=== PATIENT | male | born 1950 | race Caucasian/White ===

== ENCOUNTER 2016-07-23 14:05 | Emergency (ER) | payer MEDICARE, OTHER ==
[~2016-07-23] VITALS: Ht 180.3 cm; Wt 65.5 kg
[~2016-07-23 14:05] MED LIST: BACT800T5 PO; CEPH500C3 PO
[2016-07-23 14:20] VITALS: BP 125/70; PULSE 97; RESP 16; TEMP 97.9; O2SAT 97
[2016-07-23] MEDS ORDERED: VENTAER INH (15:53)
[2016-07-23] MEDS ORDERED: ADVA115A INH (15:53)
--- NOTE | 2016-07-23 16:02 | PD ---
HPI . Shortness of breath Chief Complaint: Respiratory Symptoms Time Seen by Provider: 15:42 Travel History International Travel<30 days: No Contact w/Intl Traveler<30days: No Traveled to known affect area: No History of Present Illness HPI Patient presents to us with chronic shortness of breath. Patient states that he has just recently changed Medicare and Medicaid. He states that his friends dropped him off here for evaluation. He reports no new or different symptoms. He reports chronic dyspnea and dyspnea on exertion. He reports that he has been treated in the past with home nebulizer therapy with good results. Not currently having any medications. His dyspnea is exacerbated by walking. He reports occasional hemoptysis. Patient also states that he is depressed. He has lost both his parents in the last 7 months. He denies any homicidal or suicidal ideation. Patient further reports chain-smoking and chronic alcohol abuse. None of his symptoms are new or different today. He just turned 66 a few days ago and now has Medicare. That is the only reason why he presented to the emergency department today. PFSH Past Medical History Arthritis: No Asthma: No Autoimmune Disease: No Blood Disorders: Yes (blood clot in back of neck when he was 10) Anxiety: Yes Depression: Yes Heart Rhythm Problems: No Cancer: No Cardiovascular Problems: Yes High Cholesterol: No Chest Pain: Yes Congestive Heart Failure: No COPD: No Endocrine: No Genitourinary: No Hypertension: Yes Immune Disorder: No Musculoskeletal: Yes Neurologic: No Psychiatric: No Reproductive: No Respiratory: Yes Sleep Apnea: No Past Surgical History Other Surgery: No Social History Alcohol Use: Yes (12 PK A DAY) Tobacco Use: Yes (3-5 PKS A DAY) Substance Use: Yes (occasional marijuana) Allergies-Medications (Allergen,Severity, Reaction): Coded Allergies: *MDRO Multi-Drug Resistant Organism (Verified Adverse Reaction, Unknown, ) 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) Reported Meds & Prescriptions Reported Meds & Active Scripts Active Advair Hfa 12 GM Inh (Fluticasone-Salmeterol 12 GM Inh) 115-21 Mcg/Act Aer 2 Puff INH BID Ventolin Hfa 18 GM Inh (Albuterol Sulfate) 90 Mcg/Act Aer 2 Puff INH Q4-6H PRN Keflex (Cephalexin Monohydrate) 500 Mg Cap 500 Mg PO Q6HR 10 Days Bactrim DS (Sulfamethoxazole-Trimethoprim DS) 1 Tab Tab 1 Tab PO Q12HR 10 Days Review of Systems Except as stated in HPI: all other systems reviewed are Neg General / Constitutional: No: Fever, Chills Respiratory: Positive: Shortness of Breath, Hemoptysis Psychiatric: Positive: Depression, Substance Abuse, No: Suicidal Ideations, Disorder of Thought, Homicidal Ideation Physical Exam Narrative Vital Signs Date Time Temp Pulse Resp B/P Pulse Ox O2 Delivery O2 Flow Rate FiO2 07/23/16 14:20 97.9 97 16 125/70 97 GENERAL: This man reeks of alcohol. He is in no acute distress. SKIN: Warm and dry. HEAD: Atraumatic. Normocephalic. EYES: Pupils equal and round. Sclerae are anicteric. ENT: No nasal bleeding or discharge. Mucous membranes pink and moist. NECK: Trachea midline. Neck is supple. CARDIOVASCULAR: Regular rate and rhythm. Heart sounds are normal. RESPIRATORY: No accessory muscle use. He is able to speak in complete sentences without any apparent toward distress. His lungs sound clear. GASTROINTESTINAL: Abdomen soft, non-tender, nondistended. MUSCULOSKELETAL: No obvious deformities. No edema. NEUROLOGICAL: Awake and alert. No obvious cranial nerve deficits. Motor grossly within normal limits. Normal speech. PSYCHIATRIC: Appropriate mood and affect; insight and judgment normal. Data Data Last Documented VS Vital Signs Date Time Temp Pulse Resp B/P Pulse Ox O2 Delivery O2 Flow Rate FiO2 07/23/16 14:20 97.9 97 16 125/70 97 [facility] [place] Medical Decision Making Medical Screen Exam Complete: Yes Emergency Medical Condition: Yes Differential Diagnosis Differential diagnosis of dyspnea includes but is not limited to congestive heart failure, pneumonia, wheezing, pneumothorax, pulmonary embolism Narrative Course Patient presents with chronic dyspnea and dyspnea on exertion with occasional hemoptysis. He is not tachypneic. His sats are 97% on room air. This patient immediately requested a nicotine patch. He does not have any acute problems. He will be discharged. I will give him a prescription for an albuterol inhaler. Diagnosis Primary Impression: Depression (emotion) Qualified Code: F32.9 - Reactive depression Additional Impression: COPD (chronic obstructive pulmonary disease) Qualified Code: J43.9 - Pulmonary emphysema, unspecified emphysema type Referrals: [facility] 1 week Patient Instructions: General Instructions Departure Forms: Tests/Procedures Scripts Fluticasone-Salmeterol 12 GM Inh (Advair Hfa 12 GM Inh)115-21 Mcg/Act Aer2 Puff INH BID #1 INHALER Ref 0 Prov:Michelle Stratton MD 07/23/16 Albuterol 18 GM Inh (Ventolin Hfa 18 GM Inh)90 Mcg/Act Aer2 Puff INH Q4-6H PRN ( SHORTNESS OF BREATH) #1 INHALER Ref 0 Prov:Michelle Stratton MD 07/23/16 Disposition: 01 DISCHARGE HOME Condition: Stable Michelle Stratton MD July 23, 2016 16:02
== END 2016-07-23 16:18 | disposition home or self-care (01) ==
LOC: PHED 14:05
DX: J44.9 Chronic obstructive pulmonary disease, unspecified (principal); F32.9 Major depressive disorder, single episode, unspecified; I10 Essential (primary) hypertension; F17.210 Nicotine dependence, cigarettes, uncomplicated; F10.10 Alcohol abuse, uncomplicated; R04.2 Hemoptysis
CPT/HCPCS: 99284

== ENCOUNTER 2017-02-05 16:59 | Emergency (ER) | payer MEDICARE, OTHER ==
[~2017-02-05] VITALS: Ht 177.8 cm; Wt 70.5 kg
[~2017-02-05 16:59] MED LIST changes: +ADVA115A INH; +VENTAER INH
[2017-02-05 17:21] VITALS: BP 138/80; PULSE 96; RESP 20; TEMP 97.5; O2SAT 98
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
--- NOTE | 2017-02-05 18:20 | RADRPT ---
EXAM DATE/TIME: 02/05/2017 18:00 [facility] COMPARISON: No previous studies available for comparison. INDICATIONS : Fall. Hit left temporal area. RADIATION DOSE: 58.96 CTDIvol (mGy) MEDICAL HISTORY : Hypertension. SURGICAL HISTORY : None. ENCOUNTER: Initial ACUITY: 1 day PAIN SCALE: 0/10 LOCATION: Left temporal TECHNIQUE: Multiple contiguous axial images were obtained of the head. Using automated exposure control and adj ustment of the mA and/or kV according to patient size, radiation dose was kept as low as reasonably a chievable to obtain optimal diagnostic quality images. DICOM format image data is available electro nically for review and comparison. FINDINGS: CEREBRUM: The ventricles are normal for age. No evidence of midline shift, mass lesion, hemorrhage or acute in farction. No extra-axial fluid collections are seen. POSTERIOR FOSSA: The cerebellum and brainstem are intact. The 4th ventricle is midline. The cerebellopontine angle i s unremarkable. EXTRACRANIAL: The visualized portion of the orbits is intact. SKULL: The calvaria is intact. No evidence of skull fracture. CONCLUSION: 1. No acute intracranial abnormalities. Soft tissue swelling in the left frontotemporal region. Doron Castelan MD on February 05, 2017 at 18:17 Board Certified Radiologist. This report was verified electronically.
[2017-02-05 18:41] VITALS: BP 123/78
== END 2017-02-05 18:41 | disposition home or self-care (01) ==
LOC: PHED 16:59
DX: S01.01XA Laceration without foreign body of scalp, initial encounter (principal); S01.81XA Laceration without foreign body of other part of head, initial encounter; W01.0XXA Fall on same level from slipping, tripping and stumbling without subsequent striking against object, initial encounter; Y93.89 Activity, other specified
CPT/HCPCS: 12013; 70450